=== PATIENT | female | born 1960 | race African-American/Black ===

== ENCOUNTER 2017-02-07 23:31 | Emergency (ER) | payer OTHER ==
--- NOTE | ~2017-02-07 | CR72 ---
[facility] A Service of [facility] & [facility] RADIOLOGY TEXT RESULTS PATIENT: LA BALLESTEROS LOCATION: [facility] : 64 UNIT #: [id number] AGE: [address]: Shonda Foster MD SEX: F ORDER DR: [id number] [facility] [address] [place], [place] [address] [id number] MR#: [id number] Acc #: [id number] NAME: LA BALLESTEROS : 1960 SEX: F STUDY DATE/TIME: 02/08/2017 0:53 UNIT: [facility] ROOM: STUDY DESCRIPTION: CR Chest Single View Portable Attending Physician: Shonda Foster M.D. Ordering Physician: Shonda Foster M.D. Primary Care Physician: Primary Care Physician No MEDICAL IMAGING REPORT This report is preliminary unless electronic signature is present EXAM Single view chest INDICATION Shortness of air for 4 days. Asthma. FINDINGS A single portable AP view of the chest without comparison. The heart is enlarged. Central pulmonary vasculature is within normal limits. No pleural effusion. IMPRESSION Stable cardiomegaly. Dictated by... Jon Pavon M.D. THIS IS AN ELECTRONICALLY VERIFIED REPORT Jon Pavon M.D. at 02/08/2017 4:10 AM GIRISH/noah TD: 02/08/2017 02:43 JOB #: [id number] MEDICAL IMAGING REPORT Page 1 of 1 COPY
== END 2017-02-08 02:20 | disposition home or self-care (01) ==
LOC: CED 23:31
DX: J20.9 Acute bronchitis, unspecified (principal); J45.909 Unspecified asthma, uncomplicated; Z88.5 Allergy status to narcotic agent
CPT/HCPCS: 71010; 94640; 99284